=== PATIENT | male | born 1990 | race Caucasian/White ===

== ENCOUNTER 2024-09-18 08:46 | Emergency (ER) | payer OTHER, SELFPAY ==
--- NOTE | ~2024-09-18 | CT_ITS ---
EXAMINATION: CT HEAD NECK ANGIOGRAPHY WITH IV CONTRAST HISTORY: Sudden onset severe left side head 6 d prior COMPARISON: There are no prior studies for comparison. TECHNIQUE: Helical axial images were obtained from the skull base to the vertex without contrast per standard departmental protocol. Subsequently, helical axial images were obtained from the aortic arch to the vertex after intravenous injection of contrast per standard Department protocol. MIP/3D reconstructions were obtained and reviewed. One or more of the following techniques was used for dose reduction: Automated exposure control, adjustment of the mA and/or kV according to patient size, use of iterative reconstruction technique. DLP: 1552 mGy-cm FINDINGS: CT BRAIN: BRAIN: The brain parenchyma is unremarkable, demonstrating normal sorto/white differentiation. The ventricular system is normal in size and configuration. There is no mass effect or midline shift. No intra or extra-axial fluid collections are identified. SINUSES/MASTOID AIR CELLS: The paranasal sinuses, mastoid air cells and middle ear cavities are clear and well pneumatized. ORBITS: The visualized orbits are unremarkable. BONES/SOFT TISSUES: The extracranial soft tissues are unremarkable. No suspicious lytic or sclerotic lesions. CTA NECK: AORTIC ARCH: The visualized portions of the arch as well as innominate, right subclavian, and left subclavian arteries show no hemodynamically significant stenosis. Right common carotid artery: There is no large vessel occlusion or hemodynamically significant stenosis. Right internal carotid artery: There is no large vessel occlusion or hemodynamically significant stenosis. Left common carotid artery: There is no large vessel occlusion or hemodynamically significant stenosis. Left internal carotid artery: There is no large vessel occlusion or hemodynamically significant stenosis. (Extracranial internal carotid artery stenosis estimates are based on use of distal ICA as the denominator.) Right vertebral artery: There is no large vessel occlusion or hemodynamically significant stenosis. Left vertebral artery: There is no large vessel occlusion or hemodynamically significant stenosis. CTA HEAD: Right intracranial ICA: There is no large vessel occlusion, hemodynamically significant stenosis, or aneurysm. Right LG: There is no large vessel occlusion, hemodynamically significant stenosis, or aneurysm. Right MCA: There is no large vessel occlusion, hemodynamically significant stenosis, or aneurysm. Left intracranial ICA: There is no large vessel occlusion, hemodynamically significant stenosis, or aneurysm. Left LG: There is no large vessel occlusion, hemodynamically significant stenosis, or aneurysm. Left MCA: There is no large vessel occlusion, hemodynamically significant stenosis, or aneurysm. Basilar artery: There is no large vessel occlusion, hemodynamically significant stenosis, or aneurysm. Superior cerebellar arteries: There is no large vessel occlusion, hemodynamically significant stenosis, or aneurysm. Right TANNERY GUMMER: There is no large vessel occlusion, hemodynamically significant stenosis, or aneurysm. Left TANNERY GUMMER: There is no large vessel occlusion, hemodynamically significant stenosis, or aneurysm. VEINS: Venous enhancement is within normal limits for this technique. SOFT TISSUES: The bilateral parotid, submandibular, and thyroid glands are unremarkable. No laryngeal abnormality is identified. There is no cervical lymphadenopathy. CT/CT angio head neck IMPRESSION: 1. No large vessel occlusion, hemodynamically significant stenosis, or aneurysm in the head and neck. 2. No acute intracranial findings. Electronically signed by: Candelario Schilling MD 09/18/2024 02:44 PM EDT
[2024-09-18 09:00] VITALS: BP 120/71; PULSE 70; RESP 18; TEMP 37; O2SAT 100; BMI 29.4
[2024-09-18 09:17] LABS: MANUAL DIFF FLAG NO
[2024-09-18 09:25] LABS: Basophils Absolute Auto 0.1 X10*3/uL (0.0-0.2); Basophils Percent Auto 0.9 % (0-2); Eosinophils Absolute Auto 0.4 X10*3/uL (0.0-0.4); Eosinophils Percent Auto 5.6 % (0-4); Hematocrit 42.5 % (42.0-52.0); Hemoglobin 14.5 g/dl (14.0-18.0); Imm Gran Abs Auto 0.03 X10*3/uL (0.00-0.03); Imm Gran Pct Auto 0.4 % (0.0-0.4); Lymphocytes Absolute Auto 1.8 X10*3/uL (1.2-4.9); Mean Corpuscular HGB Conc 34.1 g/dl (31.0-36.0); Mean Corpuscular Hemoglobin 30.3 pg (27.0-33.0); Mean Corpuscular Volume 88.9 fL (80.0-98.0); Mean Platelet Volume 9.7 fL (9.4-12.4); Monocytes Percent Auto 13.1 % (2-11); Neutrophils Absolute Auto 4.2 x10*3/uL (2.0-8.3); Platelet Count 325 X10*3/uL (160-400); Red Blood Count 4.78 X10*6/uL (4.60-5.80); Red Cell Distribution Width 13.4 % (11.0-16.0); White Blood Count 7.6 X10*3/uL (4.8-10.8)
[2024-09-18 09:40] LABS: Albumin Level 4.2 g/dL (3.5-5.0); Alkaline Phosphatase 47 U/L (39-117); Anion Gap 10 (12-20); Aspartate Amino Transferase 38 U/L (5-37); Bilirubin Total 0.5 mg/dL (0.0-1.0); Blood Urea Nitrogen 12 mg/dL (9-16); Calcium 9.4 mg/dL (8.4-10.2); Carbon Dioxide 29 mmol/L (22-29); Chloride 106 mmol/L (96-108); Creatinine Clr Calc Pharmacy 134.3; Estimated Glomerular Filt Rate > 60; Glucose Random 96 mg/dL (60-115); Potassium 4.6 mmol/L (3.3-5.1); Sodium 140 mmol/L (135-145); Total Protein 7.2 g/dL (6.5-8.0)
[2024-09-18 09:51] LABS: Alanine Aminotransferase 38 U/L (0-40)
--- NOTE | 2024-09-18 11:48 | ED_ITS ---
HPI - Headache General Chief Complaint: Headache Stated Complaint: headaches migraine Time Seen by Provider: 09/18/24 11:47 Source: patient Mode of arrival: ambulatory Limitations: no limitations History of Present Illness ED Provider: Dr. Gaetano Avilez HPI Narrative: 34 old male with a history of migraine headaches, ADHD, seizures resolved after the age of 10-not on seizure medications who presents emergency department for evaluation of sudden onset of severe headache 7 days prior. The patient states that on , 09/11/2024, while he was relaxing, he had a sudden popping sensation on the left parietal area of his scalp. The headache was initially mild but then became severe later that evening. On initial onset of the headache, he felt like he was unable to stand. He also felt like he was having trouble finding words.. He states that later that evening,, the headache became severe and was the worst headache of his life. He described the headache as a constant, squeezing sensation in his if a rubber band was wrapped around his head. The headache has improved and is currently 6 to 7/10, constant pressure- like pain. He states that he occasionally has difficulty with word finding and this has persisted. He has very mild photophobia and mild phonophobia. Patient did have associated nausea and did vomit on the 1st day of his headache. He states that he does have a migraine syndrome and gets frequent migraines but this headache is different than in his usual migraines. His migraine usually involve a sharp pain located in the left side of his head associated with photophobia, phonophobia nausea and vomiting. He states that he finally came to emergency departmen at his 's insistence since this headache persisted and was different from his usual migraine headaches. Related Data Previous Rx's ?Medication ?Instructions ?Recorded metoclopramide HCl 10 mg tablet 10 mg PO Q6H PRN nausea and 09/18/24 (Reglan) vomiting #14 tabs Allergies Allergy/AdvReac Type Severity Reaction Status Date / Time No Known Allergies Allergy Verified 09/18/24 09:06 Review of Systems 2 Review of Systems: Yes all other systems are reviewed and are negative [facility] Past Medical History [facility] Narrative: Social history: He denies tobacco, alcohol and drug use. Social History Social History Smoked in Last 30 Days: No Use of substances other than those prescribed or required for medical reasons: No Advance Directives: No Advance Directives Information Provided: Yes Physical Exam 2 Vital Signs: Vital Signs: Last Vital Signs Temp 98.3 F 09/18/24 12:46 Pulse 70 09/18/24 12:46 Resp 14 09/18/24 12:46 BP 132/88 09/18/24 12:46 Pulse Ox 99 09/18/24 12:46 O2 Del Method Room Air 09/18/24 12:46 BMI result Body Mass Index 29.4 Vital signs were normal Exam: General: Awake, alert in no distress Head: Normocephalic, atraumatic EENT: PERRL, Lids normal, sclera normal, conjunctiva normal, nose normal , ears normal, throat without erythema or exudates Neck: Supple, no adenopathy Lung: breath sounds symmetric, no wheezing, rales or rhonchi Chest: symmetric movement, nontender Heart: regular rate and rhythm, normal S1, S2 no murmurs or rubs Abdomen: soft, non-tender, nondistended, normal bowel sounds Back: no vertebral tenderness, no CVAT Extremities: no deformities, moves all extremities symmetrically Neuro: Awake, alert, oriented, normal speech, cranial nerves intact, moves all extremities symmetrically with normal strength Psych: Pleasant, cooperative Medications Administered Discontinued Medications Generic Name Dose Route Start Last Admin Trade Name Yamilq PRN Reason Stop Dose Admin Sodium Chloride 1,000 mls @ 999 mls/hr 09/18/24 12:21 09/18/24 14:08 Ns IV 09/18/24 13:21 Infused .Q1H1M STA Infusion Iohexol 100 ml 09/18/24 14:22 09/18/24 14:22 Iohexol 350 Mg/Ml 100 Ml Infus..Btl IV 09/18/24 14:23 70 ml ONCE ONE Administration Medical Decision Making Medical Decision Making MDM Narrative: 34 old male with a history of migraine headaches, ADHD, seizures resolved after the age of 10-not on seizure medications who presents emergency department for evaluation of sudden onset of severe headache 7 days prior. The patient states that on , 09/11/2024, while he was relaxing, he had a sudden popping sensation on the left parietal area of his scalp. The headache was initially mild but then became severe later that evening. On initial onset of the headache, he felt like he was unable to stand. He also felt like he was having trouble finding words.. He states that later that evening,, the headache became severe and was the worst headache of his life. He described the headache as a constant, squeezing sensation in his if a rubber band was wrapped around his head. The headache has improved and is currently 6 to 7/10, constant pressure- like pain. He states that he occasionally has difficulty with word finding and this has persisted. He has very mild photophobia and mild phonophobia. Patient did have associated nausea and did vomit on the 1st day of his headache. This headache is different than his usual headache. Vital signs was normal. Physical examination was normal. Differential diagnosis: ?Includes but is not limited to subarachnoid hemorrhage, ruptured cerebral aneurysm, sentinel bleed, migraine headache, headache, anemia, electrolyte abnormalities Course: 12:40 My interpretation patient's laboratory evaluation : CBC was normal. CMP was normal The patient's presentation is concerning for possible bleeding aneurysm versus carotid dissection as the cause of his headache. I think that tumor in his less likely and detecting a subarachnoid hemorrhage from 7 days prior is also not possible therefore I did order a CT angiogram of the head and neck to look for cerebral aneurysm and carotid dissection. 15:[address] scan of the patient's brain in the CT angiogram of the head and neck did not reveal any clear cause for the patient's symptoms. There were no aneurysms or dissections noted by the radiologist. I did discuss this with the patient and did tell him that the CT scan is good it seeing aneurysms greater than 3 mm. I told the patient that his headaches are most likely caused by a migraine syndrome however if his headache worse again, if you develop the worst headache in his life again then he should return to the emergency department immediately for repeat imaging. Patient's migraine headache will be treated with Reglan 10 mg, Benadryl 50 mg and Excedrin migraine 2 pills every 6 hours as needed for pain. He was given printed and verbal instructions and discharged home. Admission/Observation Consideration of admission/observation: Escalation of care including admission/observation considered (Yes) Lab Data MDM Lab Attestation statement: I reviewed the patient's lab results. 09/18/24 09:14 09/18/24 09:14 Labs: Lab Results 09/18/24 Range/Units 09:14 WBC 7.6 (4.8-10.8) X10*3/uL RBC 4.78 (4.60-5.80) X10*6/uL Hgb 14.5 (14.0-18.0) g/dl Hct 42.5 (42.0-52.0) % MCV 88.9 (80.0-98.0) fL MCH 30.3 (27.0-33.0) pg MCHC 34.1 (31.0-36.0) g/dl RDW 13.4 (11.0-16.0) % Plt Count 325 (160-400) X10*3/uL MPV 9.7 (9.4-12.4) fL Immature Gran % (Auto) 0.4 (0.0-0.4) % Neut % (Auto) 56.0 (45-73) % Lymph % (Auto) 24.0 (20-40) % [place] % (Auto) 13.1 H (2-11) % Eos % (Auto) 5.6 H (0-4) % Baso % (Auto) 0.9 (0-2) % Lymph # (Auto) 1.8 (1.2-4.9) X10*3/uL [place] # (Auto) 1.0 (0.1-1.2) X10*3/uL Eos # (Auto) 0.4 (0.0-0.4) X10*3/uL Baso # (Auto) 0.1 (0.0-0.2) X10*3/uL Abs Immat Gran (auto) 0.03 (0.00-0.03) X10*3/uL Absolute Neuts (auto) 4.2 (2.0-8.3) x10*3/uL Absolute Nucleated RBC 0.000 (0.0-0.012) X10*3/uL Nucleated RBC % (auto) 0.0 (0.0-0.2) /100WBC ESR 7 (0-15) MM/HR Sodium 140 (135-145) mmol/L Potassium 4.6 (3.3-5.1) mmol/L Chloride 106 (96-108) mmol/L Carbon Dioxide 29 (22-29) mmol/L Anion Gap 10 L (12-20) BUN 12 (9-16) mg/dL Creatinine 0.86 (0.5-1.4) mg/dL Estim Creat Clear Calc 134.3 Estimated GFR > 60 Random Glucose 96 (60-115) mg/dL Calcium 9.4 (8.4-10.2) mg/dL Magnesium 2.0 (1.6-2.6) mg/dL Total Bilirubin 0.5 (0.0-1.0) mg/dL AST 38 H (5-37) U/L ALT 38 (0-40) U/L Alkaline Phosphatase 47 (39-117) U/L C-Reactive Protein 0.19 (< or = 0.50) mg/dL Total Protein 7.2 (6.5-8.0) g/dL Albumin 4.2 (3.5-5.0) g/dL Radiology Impression Discussion of test interpretation with radiology: I have reviewed the radiologist's reading. Radiologist Impression: CT/CT angio head neck IMPRESSION: 1. No large vessel occlusion, hemodynamically significant stenosis, or aneurysm in the head and neck. 2. No acute intracranial findings. Electronically signed by: Candelario Schilling MD 09/18/2024 02:44 PM EDT Prescription Management I considered prescription management with: Other (Anti migraine/antiemetic: Reglan) Chronic Conditions Patient?s care impacted by: Other (Migraine syndrome) Discharge Plan Discharge Clinical Impression: Migraine headache Patient Disposition: Home, Self-Care Additional Instructions: Your blood work was unremarkable. The CT scan without contrast of your brain was normal. The CT angiogram of the arteries of your head and neck did not reveal any significant aneurysms ( abnormal bulging artery) or dissection (tearing of the arteries) of the arteries in your head or neck. This is reassuring since the CT scan can often see in his arms as small as 3 mm. If you get recurrence of a severe headache/worse headache of your life I want you to return to the emergency department immediately to get a repeat CT scan to look for bleeding in the brain otherwise I want you to follow up with your doctor for re-evaluation and further treatment of your migraine syndrome. I want you to take the following 3 medications together every 6 hours as needed for headache, nausea or vomiting. The only prescription medication is Reglan the other 2 medications or [id number] medications. Reglan (metoclopramide) in 10 mg, 1 pill Benadry (diphenhydramine) l 25 mg, 2 pills Excedrin migraine (acetaminophen, aspirin, caffeine), 2 pills. After you take these medications, lie down in a dark quiet room and try to fall asleep. ?These medications will make you sleepy, do not drive or work after taking these medications. Do not take NSAIDs (naproxen, Aleve, Advil, Motrin, ibuprofen) while your taking Excedrin migraine. Follow-up with your doctor in 2 days. Please return to the emergency department if your symptoms get worse or if you develop any symptoms that are concerning to you. Prescriptions: New metoclopramide HCl [Reglan] 10 mg tablet 10 mg PO Q6H PRN (Reason: nausea and vomiting) Qty: 14 0RF Stand Alone Forms: Work/School Release Interventions: ED Discharge Assessment Last Done: 09/18/24 15:40 Print Language: Korean
[2024-09-18 12:46] VITALS: BP 132/88; PULSE 70; RESP 14; TEMP 36.8; O2SAT 99
--- NOTE | 2024-09-18 12:49 | PC.NURSE ---
PAtient reports to ED c/o worst headache of his life . Pain rated 8/10, non radiating. Denies vision changes, Denies n/v, Denies gait changes. Headache started on 09/13 and hasnt changed. Patient reports taking naproxen when headaches form, reports getting alittle relief. 20G in RAC currently running NaCl 1L. Lights dimmed, he of bed lowered for headache relief. Plan of care on going.
[2024-09-18] MEDS: 0.9 % Sodium Chloride 1,000 ML 999 ML IV (12:55)
--- OUTSIDE RECORDS SUMMARY | 2024-09-18 13:11 | XMS_ITS | Clinical Summary ---
Author Organization [place] [address] [address] [facility]ly [facility], Later [facility] Building Address [facility] [address] [place] [address] Phone Care Team Providers Care Tester Sound Name Role Phone Jennifer Gross DO Primary Care Provider [phone] Allergies No known active allergies Medications naproxen (NAPROSYN) 500 mg tablet Take 1 tablet (500 mg total) by mouth 2 (two) times a day with meals. 60 each 2 4 03/27/20 25 Active levothyroxine (SYNTHROID, LEVOTHROID) 125 mcg tablet Take 1 tablet (125 mcg total) by mouth 1 (one) time each day before breakfast. 90 each 1 4 09/29/19 25 Active minoxidiL (LONITEN) 2.5 mg tablet Take 1 tablet (2.5 mg total) by mouth 1 (one) time each day. 5 Active amphetamine-dex troamphetamine XR (ADDERALL XR) 10 mg 24 hr capsule Take 1 Capsule by mouth every morning for 28 days. - Oral 28 capsule 5 Active amphetamine-dex troamphetamine XR (ADDERALL XR) 10 mg 24 hr capsule Take 1 Capsule by mouth every morning for 28 days. - Oral 28 capsule 5 08/24/19 25 Discontinu ed(Reorder ) Active Problems Problem Noted Date Diagnosed Date Prediabetes 07/04/2024 Attention deficit hyperactivity disorder (ADHD) 04/05/2018 Environmental and seasonal allergies 01/31/2018 Hypercholesteremia 10/12/2011 Hypothyroid 10/12/2011 Migraine 05/27/2010 Encounters Date Type Department Care Team Description 07/02/2024 3:50 PM EST Lab Draw Station [address] Attention deficit hyperactivity disorder (ADHD), unspecified ADHD type; Long-term use of high-risk medication; Hypothyroidism, unspecified type; Hypercholesteremia 07/02/2024 8:30 AM EST Office Visit Internal Medicine - [address] [phone] Jennifer Gross, Hypothyroidism, unspecified type (Primary Dx); Attention deficit hyperactivity disorder (ADHD), unspecified ADHD type; Long-term use of high-risk medication; Screening for diabetes mellitus from Last 3 Months Immunizations Name Administration Dates Next Due Influenza trivalent, 0.5mL, preservative free (Fluarix; FluLaval; Fluzone) ages 6mo and older (Afluria) 3 years and older 02/15/2012 Tdap Tetanus diptheria acell ular pertussis (Boostrix; Adacel) 7yo and older 11/21/2021,05/27/2010 Surgical History Surgery Date Site/Laterality Comments KNEE SURGERY Left PROCEDURE: HISTORICAL KNEE SURGERY; COMMENT: ?foriegn body Medical History Medical History Date Comments Chronic low back pain 05/27/2010 DX:Chronic low back pain Migraine 05/27/2010 DX:Migraine Hypothyroid 10/12/2011 DX:Hypothyroid Myofascial pain 10/12/2011 DX:Myofascial pa in Hypercholesteremia 10/12/2011 DX:Hyperchole steremia Vitamin D insufficiency 02/16/2012 DX:Vitam in D insufficiency Family History Medical History Relation Name Comments Diabetes Father Diabetes Mother Hypertension Mother possible Coronary artery disease Neg Hx Other cancer Neg Hx Relation Name Status Comments Brother Alive Father Alive Mother Alive Social History Tobacco Use Types Packs/Day Years Used Date Smoking Tobacco: Never Smokeless Tobacco: Never Tobacco Cessation:Counseling Given: Not Answered Alcohol Use Standard Drinks/Week Comments No 0 (1 standard drink = 0.6 oz pur e alcohol) Sex and Gender Information Value Date Recorded Sex Assigned at Not on file Legal Sex Male 8:26 AM EST Gender Identity Not on file Sexual Orientation Not on file Obstetrics History Last Filed Vital Signs Vital Sign Reading Time Taken Comments Blood Pressure 134/86 07/02/2024 8:47 AM EST A Pulse 71 07/02/2024 8:47 AM EST Temperature - - Respiratory Rate 16 04/01/2024 8:41 AM EST Oxygen Saturation - - Inhaled Oxygen Concentration - - Weight 91.8 kg (202 lb 6.4 oz) 07/02/2024 8:47 A M EST Height 175.3 cm (5' 9 ) 07/02/2024 8:47 AM EST Body Mass Index 29.89 07/02/2024 8:47 AM EST Plan of Treatment Health Maintenance Due Date Last Done Comments Depression Screening 04/09/2022 HIV Screening 04/09/2022 Social Influencers of Health Screening 04/09/2022 COVID-19 Vaccine ( season) 2024 Influenza Vaccine (Season Ended) 2025 02/15/2012, 04/13/2010 Cholesterol Screening (Lipid Panel) 11/11/2028 11/12/2023, 11/12/2023 DTaP,Tdap,and Td Vaccines (9 - Td or Tdap) 11/22/2031 11/21/2021, 05/27/2010, 09/09/2001, Additional history exists MMR Vaccines Completed 09/12/1994, 08/13/1991 Hepatitis B Vaccines Completed 01/14/1996, 12/19/1994, 09/12/1994 IPV Vaccines Completed 03/18/1998, 01/1996, 09/12/1994, Additional history exists Varicella Vaccines Completed 10/09/2006, 03/13/2006 Meningococcal ACWY Vaccine Aged Out 09/23/2008 N o longer eligible based on patient's age to complete this topic Hepatitis C Screening Completed 11/21/2021 HIB Vaccines Aged Out No longer eligi ble based on patient's age to complete this topic HPV Vaccines Aged Out No longer eligi ble based on patient's age to complete this topic Hepatitis A Vaccines Aged Out No long er eligible based on patient's age to complete this topic Meningococcal B Vaccine Aged Out No l onger eligible based on patient's age to complete this topic Pneumococcal Vaccine: Pediatrics (0 to 5 Years) and At-Risk Patients (6 to 64 Years) Aged Out No longer eligible based on patient's age to complete this topic RSV Immunization Patients Under 20 months Aged Out No longer eligible based on patient's age to complete this topic Procedures Procedure Name Priority Date/Time Associated Diagnosis Comments TRIIODOTHYRONINE FREE Routine 07/02/2024 3:57 PM EST Hypothyroidism, unspecified type FREE THYROXINE WITH REFLEX TO FREE TRIIODOTHYRONINE Routine 07/02/2024 3:57 PM EST Hypothyroidism, unspecified type THYROID STIMULATING HORMONE WITH REFLEX TO FREE T4 AND FREE T3 Routine 07/02/2024 3:57 PM EST Hypothyroidism, unspecified type HEMOGLOBIN A1C Routine 07/02/2024 3:57 PM EST Hypercholesteremia DRUG ABUSE SCREEN 8A PANEL, URINE Routine 07/02/2024 3:57 PM EST Long-term use of high-risk medication THYROID STIMULATING HORMONE Routine 07/02/2024 3:57 PM EST Hypothyroidism, unspecified type BASIC METABOLIC PANEL Routine 07/02/2024 3:57 PM EST Attention deficit hyperactivity disorder (ADHD), unspecified ADHD type Long-term use of high-risk medication LIPID PANEL Routine 11/12/2023 HEPATITIS C SCREENING Routine 11/21/2021 from Last 3 Months or Most Recently Relevant to Health Maintenance Results * (ABNORMAL) Thyroid stimulating hormone with reflex to free t4 and free t3 (07/02/2024 3:57 PM EST) TSH 7.02(H) 0.40 - 4.00 mcIU/mL LAB CHEMISTRY METHOD 07/02/2024 7:39 PM EST [facility] Blood Venous blood specimen / Unknown Venipuncture / Unknown 07/02/2024 3:57 PM EST 07/02/2024 3:57 PM EST Nelson ZAMBRANO LAB BLOOD ORDERABLES Fi nal Result Performing Organization Address [facility]/ZIP Co de Phone Number [facility] [address] [place] [address], * Free thyroxine with reflex to free triiodothyronine (07/02/2024 3:57 PM EST) Pathologist [facility] Free T4 1.16 0.70 - 1.80 ng/dL LAB CHEMISTRY METHOD 07/02/2024 8:04 PM [facility] Blood Venous blood specimen / Unknown Venipuncture / Unknown 07/02/2024 3:57 PM EST 07/02/2024 3:57 PM EST Nelson ZAMBRANO LAB BLOOD ORDERABLES Fi nal Result Performing Organization Address [facility]/ZIP Co de Phone Number [facility] [address] [place] [address], * (ABNORMAL) Drug abuse screen 8a panel, urine (07/02/2024 3:57 PM EST) [facility] Amphetamine Screen, Ur Positive(A ) Negative LAB CHEMISTRY METHOD 5 7:27 PM [facility] Comment:Certain OTC medicati ons containing ephedrine, phenylephrine, pseudoephedrine and phenylpropanolamine can cause false positive results. Barbiturate Screen, Ur Negative Negative LAB CHEMISTRY METHOD 5 7:27 PM [facility] Benzodiazepine Screen, Ur Negative Negative LAB CHEMISTRY METHOD 5 7:27 PM [facility] Cocaine Screen, Ur Negative Negative LAB CHEMISTRY METHOD 5 7:27 PM [facility] Opiate Screen, Ur Negative Negative LAB CHEMISTRY METHOD 5 7:27 PM [facility] Cannabinoid (THC) Screen, Ur Negative Negative LAB CHEMISTRY METHOD 5 7:27 PM [facility] Comment:Specimens from patie nts taking pantoprazole sodium (Protonix) have been shown to produce false positive results. Oxycodone Screen, Ur Negative Negative LAB CHEMISTRY METHOD 5 7:27 PM EST [facility] Fentanyl, Ur Negative Negative LAB CHEMISTRY METHOD 7:27 PM EST [facility] Urine Urine specimen obtained by clean catch procedure / Unknown Non-blood Collection / Unknown 07/02/2024 3:57 PM EST 07/02/2024 3:57 PM EST Narrative [facility] - 07/02/2024 7:27 PM EST Assay cutoffs: Amphetamines ? 1000 ng/mL Barbiturates ?200 ng/mL Benzodiazepines ?? 200 ng/mL Cocaine ? 300 ng/mL Fentanyl ?1 ng/mL Opiates ? 300 ng/mL Oxycodone ? 100 ng/mL THC ?50 ng/mL Semi-quantitative assay for screening purposes only. Unconfirmed screening result should not be used for non-medical purposes. *ALTERNATE METHOD CONFIRMATION DONE UPON REQUEST ONLY* Jennifer Gross DO LAB URINE ORDERABLES Final Res ult [facility] [address] [place] [address], * Triiodothyronine free (07/02/2024 3:57 PM EST) T3, Free 294 230 - 420 pcg/dL LAB CHEMISTRY METHOD 07/02/2024 8:52 PM EST [facility] Blood Venous blood specimen / Unknown Venipuncture / Unknown 07/02/2024 3:57 PM EST 07/02/2024 3:57 PM EST Nelson ZAMBRANO LAB BLOOD ORDERABLES Fi nal Result Performing Organization Address [facility]/ZIP Co de Phone Number [facility] [address] [place] [address], [place] [phone] * (ABNORMAL) Thyroid stimulating hormone (07/02/2024 3:57 PM EST) [facility] TSH 7.02(H) 0.40 - 4.00 mcIU/mL LAB CHEMISTRY METHOD 07/02/2024 7:39 PM EST [facility] Blood Venous blood specimen / Unknown Venipuncture / Unknown 07/02/2024 3:57 PM EST 07/02/2024 3:57 PM EST Jennifer Gross DO LAB BLOOD ORDERABLES Final Res ult Performing Organization Address [facility] Co de Phone Number [facility] [address] [place] [address], [place] [phone] * Hemoglobin A1c (07/02/2024 3:57 PM EST) [facility] Hemoglobin A1C 5.9 <6.5 % LAB CHEMISTRY METHOD 07/03/2024 11:03 AM EST [facility] Mean Bld Glu Estim. 123 mg/dL LAB CHEMISTRY METHOD 07/03/2024 11:03 AM EST [facility] Blood Venous blood specimen / Unknown Venipuncture / Unknown 07/02/2024 3:57 PM EST 07/02/2024 3:57 PM EST Nelson ZAMBRANO LAB BLOOD ORDERABLES Fi nal Result Performing Organization Address [facility]/ZIP Co de Phone Number [facility] [address] [place] [address], [place] [phone] * Basic metabolic panel (07/02/2024 3:57 PM EST) Sodium 137 133 - 145 mmol/L LAB CHEMISTRY METHOD 07/02/2024 7:38 PM [facility] Potassium 4.1 3.5 - 5.5 mmol/L LAB CHEMISTRY METHOD 07/02/2024 7:38 PM [facility] Chloride 104 96 - 110 mmol/L LAB CHEMISTRY METHOD 07/02/2024 7:38 PM [facility] CO2 29 21 - 32 mmol/L LAB CHEMISTRY METHOD 07/02/2024 7:38 PM [facility] Anion Gap 4 3 - 11 LAB CHEMISTRY METHOD 07/02/2024 7:38 PM [facility] Glucose 89 70 - 100 mg/dL LAB CHEMISTRY METHOD 07/02/2024 7:38 PM [facility] BUN 12 5 - 25 mg/dL LAB CHEMISTRY METHOD 07/02/2024 7:38 PM [facility] Creatinine 0.85 0.70 - 1.30 mg/dL LAB CHEMISTRY METHOD 07/02/2024 7:38 PM [facility] eGFR 117 >=60 mL/min/1. 73m2 LAB CHEMISTRY METHOD 07/02/2024 7:38 PM [facility] Comment:Calculation based on the??Chronic Kidney Disease Epidemiology Collaboration (CKD-EPI) equation refit??without adjustment for race. BUN/Creatinine Ratio 14.1 LAB CHEMISTRY METHOD 07/02/2024 7:38 PM [facility] Calcium 9.2 8.5 - 10.5 mg/dL LAB CHEMISTRY METHOD 07/02/2024 7:38 PM [facility] Blood Venous blood specimen / Unknown Venipuncture / Unknown 07/02/2024 3:57 PM EST 07/02/2024 3:57 PM EST us Jennifer Gross DO LAB BLOOD ORDERABLES Final Res ult [facility] [address] [place] [address], * (ABNORMAL) Lipid panel (11/12/2023) LDL/HDL Ratio 5(A) 0 - 4 Triglycerides 106 0 - 150 mg/dL Cholesterol 254(A) 0 - 200 mg/dL HDL 56 >=40 mg/dL LDL Cholesterol 177(A) 0 - 100 mg/dL Blood Venous blood specimen / Unknown us Historical Provider MD LAB BLOOD ORDERABLES Yovana l Result * Hepatitis C Screening (11/21/2021) Hepatitis C Screening Abstracted us Historical Provider HEALTH MAINTENANCE Final Result from Last 3 Months or Most Recently Relevant to Health Maintenance Insurance [facility] [address] [place] [phone] Care Teams Tester Sound Relationship Specialty Start Date End Date Jennifer Gross DO [address] [place] [address] PCP - General Internal Medicine 03/07/24
[2024-09-18] MEDS: iohexoL 350 MG/ML 100 ML INFUS..BTL IV (14:22)
[2024-09-18 14:33] LABS: C Reactive Protein 0.19 mg/dL (< or = 0.50)
[2024-09-18 14:58] LABS: Erythrocyte Sedimentation Rate 7 MM/HR (0-15)
[2024-09-18 15:40] VITALS: BP 132/88; PULSE 70; RESP 14; TEMP 36.8; O2SAT 99
== END 2024-09-18 15:43 | disposition home or self-care (01) ==
PROVIDERS: Emergency Provider Emergency Medicine Emergency Medical Services; PCP Internal Medicine
DX: G43.909 Migraine, unspecified, not intractable, without status migrainosus (principal)
CPT/HCPCS: 36415; 70496; 70498; 80053; 83735; 85025; 85652; 86140; 96360; 99284; Q9967

== ENCOUNTER → 2024-09-18 12:19 | Outpatient (BNV) | payer OTHER, SELFPAY | PROVIDERS: Emergency Provider Emergency Medicine Emergency Medical Services; PCP Internal Medicine; Visit Provider Radiology Diagnostic Radiology | DX: R51.9 Headache, unspecified (principal) | CPT/HCPCS: 70496; 70498 ==